=== PATIENT | male | born 1955 | race Caucasian/White ===

== ENCOUNTER → 2024-08-25 10:58 | Outpatient (REF) | payer MEDICARE, OTHER, SELFPAY | LOC: RAD 10:58 | PROVIDERS: ATTENDING PHYSICIAN Internal Medicine Gastroenterology; FAMILY PHYSICIAN Family Medicine | DX: Z85.01 Personal history of malignant neoplasm of esophagus (principal); D84.9 Immunodeficiency, unspecified; R63.4 Abnormal weight loss; Z94.0 Kidney transplant status | CPT/HCPCS: 71260; 74177; Q9967 ==